=== PATIENT | female | born 1940 | race Caucasian/White ===

== ENCOUNTER 2019-04-02 11:44 | Outpatient (CLI) | payer OTHER, SELFPAY ==
[2019-04-02 12:58] LABS: Basophils Absolute Auto 0.1 K/mm3 (0.0-0.1); Basophils Percent Auto 0.5 % (0.2-1.2); Eosinophils Absolute Auto 0.2 K/mm3 (0-0.3); Eosinophils Percent Auto 1.7 % (0-4.4); Hematocrit 43.9 % (37.0-47.0); Hemoglobin 13.7 g/dL (12.0-15.0); Immature Granulocyte Absolute 0.14 K/mm3 (0.00-0.031); Immature Granulocyte Percent A 1.4 % (0-0.5); Lymphocytes Absolute Auto 2.67 K/mm3 (0.9-3.2); Mean Corpuscular HGB Conc 31.2 g/dl (32-36); Mean Corpuscular Hemoglobin 28.4 pg (26-34); Mean Corpuscular Volume 91.1 fl (80-100); Mean Platelet Volume 10.4 fl (7.4-10.4); Monocytes Absolute Auto 0.9 K/mm3 (0.1-0.6); Monocytes Percent Auto 8.9 % (2.6-8.5); Neutrophils Absolute Auto 6.3 K/mm3 (1.3-6.7); Neutrophils Percent Auto 61.5 % (45.5-73.1); Platelet Count Result 256 k/mm3 (150-375); Red Blood Count 4.82 M/mm3 (4.2-5.4); Red Cell Distribution Width 15.5 % (11.5-14.5); White Blood Count 10.3 K/mm3 (4.5-10.0)
[2019-04-02 13:07] LABS: Urine Cotinine NEGATIVE
[2019-04-02 13:09] LABS: Albumin Level 4.4 g/dL (3.5-5.1); Estimated Glomerular Filt Rate > 60; Glucose 86 mg/dL (65-105)
[2019-04-02 13:13] LABS: Hemoglobin A1C 6.9 % (<5.7)
== END 2019-04-02 11:45 | disposition home or self-care (01) ==
PROVIDERS: PCP Family Medicine; Visit Provider Orthopaedic Surgery
DX: Z01.818 Encounter for other preprocedural examination (principal); M17.12 Unilateral primary osteoarthritis, left knee
CPT/HCPCS: 36415; 80307; 82040; 82565; 82947; 83036; 85025

== ENCOUNTER 2019-04-18 15:08 | Observation (INO) | payer OTHER, SELFPAY ==
[2019-04-02 12:47] VITALS: BP 156/72; PULSE 63; RESP 18; TEMP 36.8; O2SAT 95; BMI 35.1
--- NOTE | 2019-04-15 11:25 | PM.IMHP ---
H&P: HPI History of Present Illness Chief complaint: Osteoarthritis Left Knee Narrative: Kristine Patricia is a 79 year old female Who presents with left knee pain due to primary osteoarthritis. Patient is a chronic ongoing history of pain localized left knee, the patient has limited her daily activities cannot stand or walk for long periods has trouble with squatting kneeling going up and down stairs. She has mechanical symptoms aching and pain that prevent her from standing or walking for long periods. She describes the pain as sharp intermittent pains despite cortisone therapy and anti-inflammatories she continues to have moderate to severe pain. X-rays show advanced primary osteoarthritis in the left knee joint. At this point the patient's discuss further treatment options in detail with Dr. Davenport she would not to proceed with left total knee arthroplasty. past surgical history includes a heart ablation otherwise unremarkable. Drug allergies patient reports an allergy to penicillin which cause hives, she had a skin reaction and niacin statins cause body aches, and she has a sensitivity to hydrocodone which cause nausea and vomiting. Review of Systems Review of Systems: Narrative: Ten point review of systems otherwise unremarkable All systems reviewed & are unremarkable except as noted in HPI and below PMFSH Social History Social History Gender identity (if verbalized by the patient): Female Meds Home Medications and Allergies Home Medications Medication Instructions Recorded Confirmed Type aspirin 81 mg PO DAILY 04/02/19 04/02/19 History ezetimibe 10 mg PO DAILY 04/02/19 04/02/19 History loratadine 10 mg PO DAILY 04/02/19 04/02/19 History metoprolol succinate 25 mg PO DAILY 04/02/19 04/02/19 History montelukast 10 mg PO QPM 04/02/19 04/02/19 History fnvqxsbo-cedm-[place]-calcium-mins 1 tablet PO DAILY 04/02/19 04/02/19 History [Daily Multiple For Women] omega 0-ycc-oii-fish oil [Fish Oil] 1 cap PO DAILY 04/02/19 04/02/19 History omeprazole 20 mg PO DAILY 04/02/19 04/02/19 History vit C,J-Gs-gkuqm-lutein-zeaxan 1 tablet PO DAILY 04/02/19 04/02/19 History [PreserVision AREDS-2] Allergies Allergy/AdvReac Type Severity Reaction Status Date / Time Penicillins Allergy Severe hives Verified 04/02/19 12:42 niacin Allergy Intermediate scalp get Verified 04/02/19 12:42 scaly Gohkqun-Bed-Njs Reductase Allergy Intermediate body aches Verified 04/02/19 12:42 Inhibitor hydrocodone AdvReac Severe N/V Verified 04/02/19 12:42 Exam Narrative: Exam Narrative: Patient has noted be well-developed well-nourished female in no acute distress. She is alert and oriented x3. HEENT exam within normal limits heart regular rate rhythm. Lungs clear auscultation. Abdomen benign. The patient is noted be 5' 7 220 lb. Extremities showed the patient's hips move well negative Stinchfield negative THOMAS. Patient's left knee shows pain with manipulation range of motion she has subpatellar crepitation and tenderness on the joint lines with pain with extremes of motion. She has a mild effusion swelling. Strength is 5 5. Knee joint is otherwise stable. X-rays show advanced primary osteoarthritis left knee joint. Patient walks with an antalgic gait because of the left knee pain. Skin is intact without rashes or lesions. Central nervous system exam within normal limits. Assessment and Plan Additional Plan By history exam the patient has advanced primary osteoarthritis left knee joint. The patient has discussed risks benefits limitations and alternatives to surgery in great detail with Dr. Davenport she is now ready to proceed with a left total knee arthroplasty. The patient is scheduled to undergo surgery 04/17/2019 at [facility] with Dr. Davenport, the patient voiced understanding agrees above plan.
[2019-04-17] VITALS (16 sets, daily range): BP systolic 99–180; BP diastolic 56–86; PULSE 66–95; RESP 9–20; TEMP 36.1–36.7; O2SAT 94–100
--- NOTE | 2019-04-17 07:02 | WPDHPUPDATE1 ---
History and Physical Update Update Date/Time: 04/17/19 07:02 History and Physical has been reviewed, including an updated exam of the patient. There are NO changes in the patient's condition. Risks, benefits, and alternatives have been discussed and questions answered. Patient agrees to proceed with procedure.
--- NOTE | 2019-04-17 08:25 | WPDANESEPPF ---
Anes - Initial Pre Proc Eval Procedure: Operation Date: 04/17/19 10:00 Proposed Procedures p Left Total Knee Arthroplasty - Efrain Davenport MD Date/Time: 04/17/19 08:25 Surgeon: Efrain Davenport MD Pre Op Diagnosis: Osteoarthritis Left Knee Patient Data Age: 79 Gender: F Height: 1.7 m Weight: 100.2 kg Last Vital Signs Temp 36.8 C 04/02/19 12:47 Pulse 63 04/02/19 12:47 Resp 18 04/02/19 12:47 BP 156/72 H 04/02/19 12:47 Pulse Ox 95 04/02/19 12:47 Allergies Allergy/AdvReac Type Severity Reaction Status Date / Time Penicillins Allergy Severe hives Verified 04/17/19 08:24 hydrocodone AdvReac Severe N/V Verified 04/17/19 08:24 niacin AdvReac Intermediate scalp get Verified 04/17/19 08:24 scaly Zojpmwz-Oxv-Urc Reductase AdvReac Intermediate body aches Verified 04/17/19 08:24 Inhibitor Home Medications Medication Instructions Recorded Confirmed Type aspirin 81 mg PO DAILY 04/02/19 04/17/19 History ezetimibe 10 mg PO DAILY 04/02/19 04/17/19 History loratadine 10 mg PO DAILY 04/02/19 04/17/19 History metoprolol succinate 25 mg PO DAILY 04/02/19 04/17/19 History montelukast 10 mg PO QPM 04/02/19 04/17/19 History ftltkcab-dpek-ZU-calcium-mins 1 tablet PO DAILY 04/02/19 04/17/19 History [Daily Multiple For Women] omega 6-ioe-pzq-fish oil [Fish Oil] 1 cap PO DAILY 04/02/19 04/17/19 History omeprazole 20 mg PO DAILY 04/02/19 04/17/19 History vit C,M-Pk-vdiya-lutein-zeaxan 1 tablet PO DAILY 04/02/19 04/17/19 History [PreserVision AREDS-2] Patient hx anesthesia problems: none Family hx anesthesia problems: none PMFSH Past Medical History Medical History (Updated 04/17/19 @ 08:27 by Usama Lindsey MD) Arthritis Gastroesophageal reflux disease HTN (hypertension) Hypercholesterolemia Obesity SIDDHARTH (obstructive sleep apnea) Social History Social History Gender identity (if verbalized by the patient): Female Anes - Eval Final PreProcedure Day of Procedure 04/17/19 08:25 Patient weight: obese Heart: regular rate and rhythm Lungs: clear to auscultation and normal air movement Airway: Mallampati scale class II Neurological: alert and oriented Last oral intake: >/= 8 hours ASA classification: III Emergent: no Anesthetic plan: proceed Anesthesia type and monitoring: general LMA Informed Consent: The patient's anesthetic plan and its attendant risks and benefits were discussed with the patient/family/POA. Questions were solicited and answers provided to the satisfaction of the patient/family/POA.
[2019-04-17] MEDS: LACTATED RINGERS 1,000 ML 30 ML IV CONT ×2 (08:35→11:21)
--- NOTE | 2019-04-17 09:13 | WPDANESPNB ---
Anes - Peripheral Nerve Block Date/Time: 04/17/19 09:13 I have discussed with the patient/family/POA the placement of a peripheral nerve block for post-operative pain management, including associated risks, benefits, complications, and side effects. Alternative methods of post-operative analgesia were detailed. Questions were solicited and answers provided to the satisfaction of the patient/family/POA. Time-Out: A pre-procedural Time-Out was completed immediately before starting the procedure and confirmed: Patient Identification, Site, Procedure, Patient Position and the Availability of Requisite Equipment. Clinical Indications: Acute post-operative pain management requested by the operative surgeon. Nerve Block Insertion Note Anes-nerve block: adductor canal left Patient position: supine Skin prep: chlorhexidine Needle: 22 gauge, stimulating, insulated echogenic needle. Needle length: 80 mm Technique: ultrasound Technique comment: in plane Injectate: bupivacaine 0.5% with epi 5 mcg/ml (30cc) Observations: tolerated well Complications: none Procedure start time:: 905 Procedure end time:: 910
[2019-04-17] MEDS: CLINDAMYCIN 900 MG/NS 50 ML 900 MG/50 ML PIGGYBACK 50 MG IVPB (09:45)
[2019-04-17] MEDS: GENTAMICIN BONE CEMENT REFOBACIN 1 EACH TOPICAL (10:22)
[2019-04-17] MEDS: ceFAZolin SODIUM 1 GM VIAL IV PUSH (10:38)
--- NOTE | 2019-04-17 10:54 | PM.PROC ---
Procedure Note - Detailed Date of procedure: 04/17/19 Pre-op diagnosis: Osteoarthritis Left Knee Post-op diagnosis: same Procedure performed: [Left] total knee arthroplasty Description of procedure: The patient was brought to the operating room. General anesthetic was administered. Placed on the operating table and sterilely prepped and draped in usual manner. A longitudinal incision was made. Tourniquet inflated to 300 mmHg for a total of [time] minutes. Dissection carried down to the fascia. Medial parapatellar incision was made and the patella subluxated laterally. Patella cut from [24] to [15] mm and sized for a [34] mm button. The tibia cut perpendicular to the long axis and femur cut in 5 degrees of valgus, a [65] femur trialed. [71] tibia was felt to fit the best. The soft tissue balanced, hemostasis obtained. All [address], [71] tibia, [65] femur, [34] mm patella, and [13] mm poly. Motion was 0-125 degrees with good stablility and flexion and extension. The wound was closed with #2 vicryl, 2-0 Vicryl and torsten. Anesthesia: GETA Surgeon: Efrain Davenport MD Telephone Information Clerk: Darin Marte Estimated blood loss (mL): 200 Drains: No Packing: No Pathology: none sent Complications: No immediate complications Condition: stable Disposition: PACU Findings: arthritis
[2019-04-17] MEDS: ONDANSETRON INJ 4 MG/2 ML VIAL IV PUSH (12:21)
[2019-04-17] MEDS: SODIUM CHLORIDE 0.9% IV 1,000 ML 125 ML IV CONT (14:09)
[2019-04-17] MEDS: ONDANSETRON INJ 4 MG/2 ML VIAL (14:10)
[2019-04-17 15:05] LABS: Estimated CRCL calculation 59 ml/min; Estimated Glomerular Filt Rate > 60
[2019-04-17] MEDS: CELECOXIB 200 MG CAPSULE PO (18:57)
[2019-04-17] MEDS: DOCUSATE SODIUM 100 MG CAPSULE PO (19:00)
--- NOTE | 2019-04-17 19:52 | PC.NURSE ---
Returned from OR per BED DRESSING DRY AND INTACT R 8 FAMILY AT BEDSIDE ENCOURAGED PT TO DEEP BREATHE AND COUGH, MOVES TOES SENSATION NORMAL, PT INCONT OF URINE PT REFUSES TO TAKE PAIN MEDS WANTS ONLY TYLENOL CALLED DR GARCIA FOR ORDERS PT NAUSEATED AND VOMITING STARTED NS AT 125CC/ HR . [ ]
[2019-04-17] MEDS: RIVAROXABAN 10 MG TABLET PO (20:17)
--- NOTE | 2019-04-17 20:27 | PC.NURSE ---
DOCUMENTED FOR 1300 AND THEN CHANGED PRN TO 12 HRS UNABLE TO SEE THE DOCUMETATION.
--- NOTE | 2019-04-17 22:00 | WPDCN ---
Assessment and Plan Assessment and plan (1) Osteoarthritis of left knee: Code(s): M17.12 - Unilateral primary osteoarthritis, left knee Status: Acute Assessment and Plan: Postoperative day 0, status post left total knee arthroplasty. Wound care and pain control will be deferred to Dr. Davenport. DVT prophylaxis deferred as well. Check baseline labs in a.m. (2) Hypertension: Code(s): I10 - Essential (primary) hypertension Status: Acute Assessment and Plan: Blood pressures were reviewed and they are stable. Continue metoprolol and monitor. (3) Obstructive sleep apnea on CPAP: Code(s): G47.33 - Obstructive sleep apnea (adult) (pediatric); Z99.89 - Dependence on other enabling machines and devices Status: Acute Assessment and Plan: CPAP available while sleeping. (4) Type 2 diabetes mellitus: Code(s): E11.9 - Type 2 diabetes mellitus without complications Status: Acute Assessment and Plan: Newly diagnosed with a hemoglobin A1c of 6.9% on 04/02/2019. Patient was not yet aware of these results. We discuss that even losing 10% of her weight could help. She is instructed to follow-up with her primary care provider as an outpatient. HPI Data of Consult Date/Time: 04/17/19 22:00 Requesting Physician: Efrain Davenport MD Primary Care Provider: Rachid HollandMD Consult Narrative Narrative: Kristine Patricia is an 79-year-old female whom the hospitalist service has been consulted for postoperative medical management. Her medical history is significant for osteoarthritis, hypertension, dyslipidemia, sleep apnea, and newly diagnosed type 2 diabetes mellitus with hemoglobin A1c of 6.9 % on 04/02/2019. She has had longstanding pain in her left knee, not amenable to conservative outpatient treatment, and thus she elected for replacement today. Her surgery was performed under general anesthesia with no immediate complications documented and an estimated blood loss of 200 milliliters. She had significant nausea vomiting postoperatively but is feeling much better at this time. She was able to eat some dinner postoperatively but it was not very palatable. At the time my evaluation, she is tired. She is no longer nauseated. She has minimal pain and reports perhaps 3/10 discomfort in the back of the knee. She has not had fever, chills, sweats, chest pain, or shortness of breath. She denies paresthesias, skin color, and temperature changes distal to the surgical site. Review of Systems Review of Systems: Narrative: Twelve systems were reviewed with pertinent positives negatives as per HPI. No fever, chills, or sweats. She had a cold last month but that has resolved. No exertional chest pain or shortness of breath. No history of coronary artery disease. States compliance with her CPAP at night. Hemoglobin A1c was 6.9% on 04/02/2019, indicative of type 2 diabetes mellitus. This is not been discussed with her by her primary care provider as of yet. We discussed about simply losing maybe 10% of a rate could help, and she is going to follow-up with her doctor regarding this. She denies blurry vision, polydipsia, and polyuria. No neuropathy symptoms. She has occasional constipation. no history of venous thromboembolism. Except as documented, all other systems were reviewed and are negative. [facility] Past Medical History Medical History (Updated 04/17/19 @ 22:45 by Alisa Perea PA-C) Dyslipidemia Gastroesophageal reflux disease Hypertension Macular degeneration Obesity Obstructive sleep apnea on CPAP Osteoarthritis Type 2 diabetes mellitus Hemoglobin A1c was 6.9% on 04/02/2019, diagnostic of diabetes. Patient was not yet aware of these results at this time. Surgical History Surgical History (Updated 04/17/19 @ 22:12 by Alisa Perea PA-C) History of bladder suspension procedure History of cardiac radiofrequen
[2019-04-17] MEDS: MONTELUKAST SODIUM 10 MG TABLET PO (22:29)
[2019-04-18] VITALS: RESP 13
--- NOTE | ~2019-04-18 | XR_ITS ---
EXAMINATION: XR knee LT 2V DATE: 04/17/2019 11:44 INDICATION: Total left knee arthroplasty. Postop. TECHNIQUE: 2 views of left knee were obtained. COMPARISON: None. FINDINGS: There is a total left knee arthroplasty with patellar resurfacing. Tibia demonstrate 7 degr ees posterior angulation with respect to the tibial component. There is gas in the knee joint and sof t tissues, consistent with recent surgery. There is radiopaque material in the area of the posteromed ial knee joint. Anterior skin torsten are noted. IMPRESSION: 1. New total left knee arthroplasty. Reviewed, dictated and finalized at location A. [facility]
[2019-04-18 02:00] VITALS: BP 132/61; PULSE 82; RESP 16; TEMP 36.6; O2SAT 98
[2019-04-18 06:00] VITALS: BP 130/53; PULSE 62; RESP 16; TEMP 36.4; O2SAT 95
[2019-04-18 06:25] LABS: Basophils Percent Auto 0.1 % (0.2-1.2); Eosinophils Percent Auto 0.1 % (0-4.4); Hematocrit 35.7 % (37.0-47.0); Hemoglobin 11.5 g/dL (12.0-15.0); Immature Granulocyte Absolute 0.06 K/mm3 (0.00-0.031); Immature Granulocyte Percent A 0.5 % (0-0.5); Lymphocytes Absolute Auto 1.88 K/mm3 (0.9-3.2); Lymphocytes Percent Auto 14.8 % (18.3-44.2); Mean Corpuscular HGB Conc 32.2 g/dl (32-36); Mean Corpuscular Hemoglobin 28.8 pg (26-34); Mean Corpuscular Volume 89.5 fl (80-100); Mean Platelet Volume 10.4 fl (7.4-10.4); Monocytes Absolute Auto 1.2 K/mm3 (0.1-0.6); Monocytes Percent Auto 9.4 % (2.6-8.5); Neutrophils Absolute Auto 9.5 K/mm3 (1.3-6.7); Neutrophils Percent Auto 75.1 % (45.5-73.1); Platelet Count Result 274 k/mm3 (150-375); Red Blood Count 3.99 M/mm3 (4.2-5.4); Red Cell Distribution Width 15.2 % (11.5-14.5); White Blood Count 12.7 K/mm3 (4.5-10.0)
[2019-04-18 06:42] LABS: Blood Urea Nitrogen 15 mg/dL (7-17); Calcium 8.5 mg/dL (8.4-10.2); Carbon Dioxide 24 mmol/L (22-30); Chloride 97 mmol/L (98-107); Estimated CRCL calculation 67 ml/min; Estimated Glomerular Filt Rate > 60; Glucose 126 mg/dL (65-105); Potassium 4.4 mmol/L (3.4-5.0); Sodium 135 mmol/L (137-145)
[2019-04-18] MEDS: PANTOPRAZOLE 40 MG TABLET PO (08:33)
[2019-04-18] MEDS: EZETIMIBE 10 MG TABLET PO (08:33)
[2019-04-18] MEDS: ASPIRIN 81 MG CHEWABLE TABLET PO (08:33)
[2019-04-18] MEDS: METOPROLOL SUCCINATE EXT REL 25 MG TABCR PO (08:33)
[2019-04-18] MEDS: LORATADINE 10 MG TABLET PO (08:33)
[2019-04-18] MEDS: CELECOXIB 200 MG CAPSULE PO ×2 (08:33→17:30)
--- NOTE | 2019-04-18 10:58 | PM.PNORT ---
Progress Note: A&P Additional Plan Patient is stable postop day 1 left total knee arthroplasty. Continue PT OT and current medical management and pain control measures, hopefully we will be able to discharge the patient tomorrow if stable. The patient voiced understanding agrees with above plan. Time Spent With Patient Time with patient: less than 15 minutes Subjective Subjective Date/Time Seen: 04/18/19 10:58 Patient was having some nausea and vomiting postop yesterday. Today she is feeling much better no vomiting today with only minimal nausea. She is taking p.o. well patient tolerated therapy today walked about 80 ft but was having some postoperative pain that was slowing down her progress today. Some adjustments have been made to her pain medication regimen to see if this helps calm down the pain. Otherwise she has no complaints. Exam Narrative: Exam Narrative: Vital signs stable afebrile neurovascular patient is intact, wound dressing is clean and dry, the patient is able do a straight leg raise. Calves are benign. Patient ambulated 80 ft today. Objective Data Vital Signs Vital Signs: Vital Signs - 24 hr 04/17/19 11:21 04/17/19 11:30 04/17/19 11:45 Temperature 36.1 C L Pulse Rate 73 76 77 Respiratory Rate 13 12 12 Blood Pressure 99/56 L 108/64 108/64 Pulse Oximetry 99 97 94 04/17/19 12:00 04/17/19 12:15 04/17/19 12:30 Temperature Pulse Rate 80 76 75 Respiratory Rate 12 12 12 Blood Pressure 119/66 119/69 127/74 Pulse Oximetry 94 94 100 04/17/19 12:45 04/17/19 12:58 04/17/19 13:00 Temperature Pulse Rate 73 80 88 Respiratory Rate 12 18 11 L Blood Pressure 137/74 131/74 Pulse Oximetry 99 100 99 04/17/19 13:10 04/17/19 13:30 04/17/19 14:40 Temperature 36.7 C Pulse Rate 79 81 84 Respiratory Rate 9 L 9 L 10 L Blood Pressure 116/56 L 123/70 139/86 Pulse Oximetry 99 99 98 04/17/19 18:40 04/17/19 22:00 04/18/19 00:00 Temperature 36.7 C Pulse Rate 88 95 Respiratory Rate 11 L 20 13 Blood Pressure 130/72 137/66 Pulse Oximetry 99 97 04/18/19 02:00 04/18/19 06:00 Temperature 36.6 C 36.4 C Pulse Rate 82 62 Respiratory Rate 16 16 Blood Pressure 132/61 130/53 L Pulse Oximetry 98 95 Intake/Output Intake/Output: Intake & Output 04/15/19 04/16/19 04/17/19 04/18/19 23:59 23:59 23:59 23:59 Intake Total 965 1240 Output Total 100 800 Balance 865 440 Meds/Results Medications: Active Medications Generic Name Dose Route Start Last Admin Trade Name Freq PRN Reason Stop Dose Admin Acetaminophen 650 mg 04/18/19 22:00 Tylenol Tablet PO Q4H PRN Mild Pain (1-3) Hydrocodone Bitart/Acetaminophen 1 tab 04/18/19 10:37 [place] 7.5-325 Mg PO Q4H PRN Pain Rated 7-10 Aspirin 81 mg 04/18/19 09:00 04/18/19 08:33 Aspirin Chewable PO 81 mg DAILY KARL Administration Celecoxib 200 mg 04/17/19 17:00 04/18/19 08:33 Celebrex PO 200 mg BIDWM KARL Administration Diazepam 5 mg 04/18/19 10:28 Valium Po PO Q8H PRN Anxiety Docusate Sodium 100 mg 04/17/19 17:00 04/17/19 19:01 Colace Capsule PO Not Given BID KARL Ezetimibe 10 mg 04/18/19 09:00 04/18/19 08:33 Zetia PO 10 mg DAILY KARL Administration Cefazolin Sodium 1 gm in 50 mls @ 100 mls/hr 04/17/19 19:00 04/18/19 02:53 Ancef 1 Gm/D5w 50 Ml Pm IVPB 04/18/19 11:29 Infused Q8H KARL Infusion Loratadine 10 mg 04/18/19 09:00 04/18/19 08:33 Claritin PO 10 mg DAILY KARL Administration Metoprolol Succinate 25 mg 04/18/19 09:00 04/18/19 08:33 Toprol Xl PO 25 mg DAILY KARL Administration Montelukast Sodium 10 mg 04/17/19 22:20 04/17/19 22:29 Singulair PO 10 mg QPM KARL Administration Morphine Sulfate 4 mg 04/17/19 13:00 Morphine Sulfate Inj IV PUSH Q2H PRN Breakthrough pain rated 7-10 Naloxone HCl 0.1 mg 04/17/19 13:00 Narcan IV PUSH Q2M PRN Opiate Reversal Ondansetron HCl
[2019-04-18] MEDS: DOCUSATE SODIUM 100 MG CAPSULE PO ×2 (11:01→17:30)
[2019-04-18] MEDS: MORPHINE SULFATE 4 MG/ML INJ IV PUSH ×2 (13:02→22:30)
--- NOTE | 2019-04-18 13:25 | WPDANESPN ---
Anes - Prog Note Post-Op Date/Time: 04/18/19 13:25 Cardiovascular status: normal Respiratory status: normal Airway patency: baseline Mental status: baseline Post-Op hydration status: normal Vital Signs: Last Vital Signs Temp 36.4 C 04/18/19 06:00 Pulse 62 04/18/19 06:00 Resp 16 04/18/19 06:00 BP 130/53 L 04/18/19 06:00 Pulse Ox 95 04/18/19 06:00 Pain Score (VAS): 0/10. Patient resting in bed at time of assessment. Patient complained of pain, being treated with PRN meds available to RN. Spoke with RN regarding pain and nausea, orders available PRN. I/O: Intake & Output 04/17/19 04/18/19 04/18/19 23:59 07:59 15:59 Intake Total 615 840 450 Output Total 100 800 Balance 515 40 450 Laboratory Tests 04/18/19 05:46 04/18/19 05:46 04/17/19 04/18/19 04/18/19 14:48 05:46 05:46 WBC 12.7 H RBC 3.99 L Hgb 11.5 L Hct 35.7 L MCV 89.5 MCH 28.8 MCHC 32.2 RDW 15.2 H Plt Count 274 MPV 10.4 Immature Gran % (Auto) 0.5 Neut % (Auto) 75.1 H Lymph % (Auto) 14.8 L [place] % (Auto) 9.4 H Eos % (Auto) 0.1 Baso % (Auto) 0.1 L Lymph # (Auto) 1.88 [place] # (Auto) 1.2 H Eos # (Auto) 0.0 Baso # (Auto) 0.0 Abs Immat Gran (auto) 0.06 H Absolute Neuts (auto) 9.5 H Absolute Nucleated RBC 0.0 Nucleated RBC % 0.0 Sodium 135 L Potassium 4.4 Chloride 97 L Carbon Dioxide 24 BUN 15 Creatinine 0.80 0.70 Estim Creat Clear Calc 59 67 Estimated GFR > 60 > 60 Glucose 126 H Calcium 8.5 Post-procedural complaints: none Patient Feedback: Patient satisfied with anesthetic care.
--- NOTE | 2019-04-18 13:40 | PM.IMPN ---
Progress Note: A&P Assessment and Plan (1) Osteoarthritis of left knee: Code(s): M17.12 - Unilateral primary osteoarthritis, left knee Status: Acute Assessment and Plan: Postoperative day 1, status post left total knee arthroplasty per Dr. Davenport Wound care, DVT ppx, PT/OT and pain control will be deferred to Dr. Davenport. (2) Hypertension: Code(s): I10 - Essential (primary) hypertension Status: Acute Assessment and Plan: Blood pressures were reviewed and they are stable. BP 130s today Continue metoprolol and monitor. (3) Obstructive sleep apnea on CPAP: Code(s): G47.33 - Obstructive sleep apnea (adult) (pediatric); Z99.89 - Dependence on other enabling machines and devices Status: Acute Assessment and Plan: CPAP available while sleeping, although patient deferred last night (4) Type 2 diabetes mellitus: Code(s): E11.9 - Type 2 diabetes mellitus without complications Status: Acute Assessment and Plan: Newly diagnosed with a hemoglobin A1c of 6.9% on 04/02/2019. Patient was not yet aware of these results. It was discussed that even losing 10% of her weight could help. She is instructed to follow-up with her primary care provider as an outpatient. She understands these instructions Additional Plan Thank you for allowing the Hospitalist team to care for this patient during their stay. We will continue to follow with you. Please call with any questions Subjective Date/time seen: 04/18/19 13:40 This is a Hospitalist Consult Progress Note Interval history: Patient is a 79 yo F with history of osteoarthritis, hypertension, dyslipidemia, sleep apnea, and newly diagnosed type 2 diabetes mellitus with hemoglobin A1c of 6.9 % on 04/02/2019 who is here for elective LTKA per Dr. Davenport POD1; Hospitalist service has been consulted for medical management of comorbid conditions during her stay. Patient states she is doing okay today, but was in significant pain earlier in stay. She states adjustments in her medications and an icepack to the back of the knee have helped with her pain. She states her N/V has resolved. She has not had a BM yet. She thinks she is doing well with therapy thus far. No other complaints today. Denies f/c/ns, headaches, dizziness, lightheadedness, changes in v/h, cp/palpitations, sob/cough, abd pain, dysphagia, melena, brbpr, dysuria, hematuria, cloudy urine, calf pain/swelling, s/sx of stroke Review of Systems Review of Systems: All systems reviewed & are unremarkable except as noted in HPI and below Exam Narrative: Exam Narrative: Patient lying in semi-arora's position at time of visit Const: General: cooperative, healthy appearing, comfortable, no acute distress, well developed, alert and awake Nutritional Appearance: obese Orientation/consciousness: patient oriented x3 HENMT: Head: normocephalic and atraumatic General nose exam: Normal nares present Face and sinus: face symmetric Mouth: Yes tongue normal and Yes moist mucous membranes Teeth and gingiva: fair dentition Throat: posterior oropharynx normal and uvula midline Eyes: General: appearance normal, both eyes and all related structures Sclera: sclerae normal Pupils: Equal, round and reactive pupils present EOM: EOMs intact bilaterally Neck: Neck: trachea midline and supple Resp: Effort & Inspection: normal respiratory effort Auscultation: clear to auscultation bilaterally Cardio: Rate: regular rate Rhythm: regular rhythm Heart sounds: no murmurs GI: Inspection: obesity GI Palp: No abdominal tenderness and Yes Soft to palpation Auscultation: normal bowel sounds and Hypoactive bowel sounds present Skin: General skin exam: normal color and no rashes or lesions noted Neuro: General: patient oriented x3 and moves al
[2019-04-18] MEDS: ONDANSETRON INJ 4 MG/2 ML VIAL IV PUSH ×2 (15:28→22:30)
[2019-04-18] MEDS: RIVAROXABAN 10 MG TABLET PO (17:30)
[2019-04-18] MEDS: MONTELUKAST SODIUM 10 MG TABLET PO (17:30)
[2019-04-18] MEDS: ACETAMINOPHEN 325 MG TABLET 650 MG PO ×2 (17:32→21:31)
[2019-04-18 20:00] VITALS: PULSE 77; RESP 16; O2SAT 94
[2019-04-18 22:00] VITALS: BP 129/65; PULSE 77; RESP 16; TEMP 36.4; O2SAT 94
[2019-04-19] MEDS: ONDANSETRON INJ 4 MG/2 ML VIAL IV PUSH ×2 (04:02→08:56)
[2019-04-19] MEDS: MORPHINE SULFATE 4 MG/ML INJ IV PUSH (05:42)
[2019-04-19 06:00] VITALS: BP 119/66; PULSE 78; RESP 16; TEMP 36.6; O2SAT 95
[2019-04-19 06:05] LABS: Hematocrit 34.1 % (37.0-47.0); Hemoglobin 10.7 g/dL (12.0-15.0); Mean Corpuscular HGB Conc 31.4 g/dl (32-36); Mean Corpuscular Hemoglobin 28.5 pg (26-34); Mean Corpuscular Volume 90.9 fl (80-100); Mean Platelet Volume 10.7 fl (7.4-10.4); Platelet Count Result 218 k/mm3 (150-375); Red Blood Count 3.75 M/mm3 (4.2-5.4); Red Cell Distribution Width 15.6 % (11.5-14.5); White Blood Count 6.6 K/mm3 (4.5-10.0)
[2019-04-19 11:15] VITALS: PULSE 78
[2019-04-19] MEDS: CELECOXIB 200 MG CAPSULE PO ×2 (11:15→18:28)
[2019-04-19] MEDS: ASPIRIN 81 MG CHEWABLE TABLET PO (11:15)
[2019-04-19] MEDS: EZETIMIBE 10 MG TABLET PO (11:15)
[2019-04-19] MEDS: DOCUSATE SODIUM 100 MG CAPSULE PO ×2 (11:15→18:35)
[2019-04-19] MEDS: LORATADINE 10 MG TABLET PO (11:15)
[2019-04-19] MEDS: METOPROLOL SUCCINATE EXT REL 25 MG TABCR PO (11:15)
[2019-04-19] MEDS: PANTOPRAZOLE 40 MG TABLET PO (11:16)
--- NOTE | 2019-04-19 12:22 | PM.PNORT ---
Progress Note: A&P Additional Plan Patient is now 2 days postop left total knee arthroplasty. She is finding nausea due to narcotic pain medication were trying to minimize this however she is having significant postoperative pain as well. We will add Flexeril 10 mg every 8 hours p.r.n., continue with Celebrex, ice, and will minimize narcotics for now. She is going to keep trying to work in physical therapy and continue with liquid diet advance as tolerated. We will keep her again overnight to monitor and hopefully discharge tomorrow. Patient voiced understanding agrees above plan. Time Spent With Patient Time with patient: 15 - 25 minutes Subjective Subjective Date/Time Seen: 04/19/19 12:22 Patient today is complaining of lots of nausea, having trouble participating in physical therapy due to feeling sick to her stomach a little bit coronal ?woozy . Patient has not vomited today but did yesterday, states she has lots of trouble taking narcotic pain medication postoperatively. She has tried to minimize this however the pain becomes unbearable in her left knee and has had to use morphine and [place] to try to control this. She states she otherwise feels okay without other complaints. She has not had a bowel movement since surgery 2 days ago and she was offered medication to help with this as well and would like to proceed. Exam Narrative: Exam Narrative: Vital signs stable afebrile neurovascular she is intact. Wound dressing is clean and dry. Calves are benign. She is able to do a straight leg raise without difficulty but with some pain. Abdomen is soft and nontender. Objective Data Vital Signs Vital Signs: Vital Signs - 24 hr 04/18/19 20:00 04/18/19 22:00 04/19/19 06:00 Temperature 36.4 C 36.6 C Pulse Rate 77 77 78 Respiratory Rate 16 16 16 Blood Pressure 129/65 119/66 Pulse Oximetry 94 94 95 04/19/19 11:15 Temperature Pulse Rate 78 Respiratory Rate Blood Pressure Pulse Oximetry Intake/Output Intake/Output: Intake & Output 04/16/19 04/17/19 04/18/19 04/19/19 23:59 23:59 23:59 23:59 Intake Total 965 2110 470 Output Total 100 800 750 Balance 865 1310 -280 Meds/Results Medications: Active Medications Generic Name Dose Route Start Last Admin Trade Name Freq PRN Reason Stop Dose Admin Acetaminophen 650 mg 04/18/19 22:00 04/18/19 21:31 Tylenol Tablet PO 650 mg Q4H PRN Administration Mild Pain (1-3) Hydrocodone Bitart/Acetaminophen 1 tab 04/18/19 10:37 04/19/19 08:56 [place] 7.5-325 Mg PO 1 tab Q4H PRN Administration Pain Rated 7-10 Aspirin 81 mg 04/18/19 09:00 04/19/19 11:15 Aspirin Chewable PO 81 mg DAILY KARL Administration Celecoxib 200 mg 04/17/19 17:00 04/19/19 11:15 Celebrex PO 200 mg BIDWM KARL Administration Diazepam 5 mg 04/18/19 10:28 Valium Po PO Q8H PRN Anxiety Docusate Sodium 100 mg 04/17/19 17:00 04/19/19 11:15 Colace Capsule PO 100 mg BID KARL Administration Ezetimibe 10 mg 04/18/19 09:00 04/19/19 11:15 Zetia PO 10 mg DAILY KARL Administration Loratadine 10 mg 04/18/19 09:00 04/19/19 11:15 Claritin PO 10 mg DAILY KARL Administration Metoprolol Succinate 25 mg 04/18/19 09:00 04/19/19 11:15 Toprol Xl PO 25 mg DAILY KARL Administration Montelukast Sodium 10 mg 04/17/19 22:20 04/18/19 17:30 Singulair PO 10 mg QPM KARL Administration Morphine Sulfate 4 mg 04/17/19 13:00 04/19/19 05:42 Morphine Sulfate Inj IV PUSH 4 mg Q2H PRN Administration Breakthrough pain rated 7-10 Naloxone HCl 0.1 mg 04/17/19 13:00 Narcan IV PUSH Q2M PRN Opiate Reversal Ondansetron HCl 4 mg 04/17/19 15:07 04/19/19 08:56 Zofran Inj IV PUSH 4 mg Q4H PRN Administration Nausea And Vomiting Pantoprazole Sodium 40 mg 04/18/19 09:00 04/19/19 11:16 Protonix PO 40 mg QAM KARL Administration Rivaroxaban 10 mg 04/17/19 21:00 02/2
[2019-04-19] MEDS: ONDANSETRON HCL ODT 4 MG TABLET PO (13:48)
[2019-04-19] MEDS: CYCLOBENZAPRINE HCL 10 MG TABLET PO (13:48)
[2019-04-19] MEDS: BISACODYL 5 MG TABLET EC 10 MG PO (13:49)
[2019-04-19 14:00] VITALS: BP 136/72; PULSE 85; RESP 16; TEMP 36.7; O2SAT 97
--- NOTE | 2019-04-19 15:20 | PM.IMPN ---
Progress Note: A&P Assessment and Plan (1) Osteoarthritis of left knee: Code(s): M17.12 - Unilateral primary osteoarthritis, left knee Status: Acute Assessment and Plan: Postoperative day 2, status post left total knee arthroplasty per Dr. Davenport Wound care, DVT ppx, PT/OT and pain control will be deferred to Dr. Davenport. (2) Hypertension: Code(s): I10 - Essential (primary) hypertension Status: Acute Assessment and Plan: Blood pressures were reviewed and they are stable. BP 130s today Continue metoprolol and monitor. (3) Obstructive sleep apnea on CPAP: Code(s): G47.33 - Obstructive sleep apnea (adult) (pediatric); Z99.89 - Dependence on other enabling machines and devices Status: Acute Assessment and Plan: CPAP available while sleeping, although patient has deferred due to machine (4) Type 2 diabetes mellitus: Code(s): E11.9 - Type 2 diabetes mellitus without complications Status: Acute Assessment and Plan: Newly diagnosed with a hemoglobin A1c of 6.9% on 04/02/2019. Patient was not yet aware of these results. It was discussed that even losing 10% of her weight could help. She is instructed to follow-up with her primary care provider as an outpatient. She understands these instructions (5) Constipation: Code(s): K59.00 - Constipation, unspecified Status: Acute Assessment and Plan: Likely due to decreased mobility/opioid use Agree with bisacodyl in addition to her already scheduled docusate BID Consider Senna PO or suppository/enema for lower GI tract stimulation, as well, for possible added benefit Encouraged patient to be up out of bed as much as possible Monitor Additional Plan Thank you for allowing the Hospitalist team to care for this patient during their stay. We will continue to follow with you. Please call with any questions Subjective Date/time seen: 04/19/19 15:20 Interval history: Patient is a 79 yo F with history of osteoarthritis, hypertension, dyslipidemia, sleep apnea, and newly diagnosed type 2 diabetes mellitus with hemoglobin A1c of 6.9 % on 04/02/2019 who is here for elective LTKA per Dr. Davenport POD2; Hospitalist service has been consulted for medical management of comorbid conditions during her stay. Patient states she is still in pain today. She had N/V yesterday afternoon, but this has resolved; she thinks her pain medication exacerbates this. She is still constipated. She is not passing gas. No other complaints today. Denies f/c/ns, headaches, dizziness, lightheadedness, changes in v/h, cp/palpitations, sob/cough, abd pain, dysphagia, dysuria, hematuria, cloudy urine, calf pain/swelling, s/sx of stroke Review of Systems Review of Systems: All systems reviewed & are unremarkable except as noted in HPI and below Exam Narrative: Exam Narrative: Patient lying in semi-arora's position at time of visit. is in room visiting Const: General: cooperative, healthy appearing, comfortable, no acute distress, well developed, alert and awake Nutritional Appearance: obese Orientation/consciousness: patient oriented x3 HENMT: Head: normocephalic and atraumatic General nose exam: Normal nares present Face and sinus: face symmetric Mouth: Yes tongue normal and Yes moist mucous membranes Teeth and gingiva: fair dentition Throat: posterior oropharynx normal and uvula midline Eyes: General: appearance normal, both eyes and all related structures Sclera: sclerae normal Pupils: Equal, round and reactive pupils present EOM: EOMs intact bilaterally Neck: Neck: trachea midline and supple Resp: Effort & Inspection: normal respiratory effort Auscultation: clear to auscultation bilaterally Cardio: Rate: regular rate
[2019-04-19] MEDS: MONTELUKAST SODIUM 10 MG TABLET PO (18:29)
[2019-04-19] MEDS: RIVAROXABAN 10 MG TABLET PO (18:29)
[2019-04-19 19:58] VITALS: PULSE 85; RESP 16; O2SAT 97
[2019-04-19 20:10] VITALS: PULSE 85; RESP 16; O2SAT 97
[2019-04-19 22:11] VITALS: BP 155/74; PULSE 88; RESP 16; TEMP 36.8; O2SAT 98
[2019-04-20 03:12] VITALS: PULSE 76; RESP 18; O2SAT 96
[2019-04-20 06:00] VITALS: BP 150/66; PULSE 87; RESP 16; TEMP 37; O2SAT 96
[2019-04-20 06:27] LABS: Hematocrit 32.1 % (37.0-47.0); Hemoglobin 10.2 g/dL (12.0-15.0); Mean Corpuscular HGB Conc 31.8 g/dl (32-36); Mean Corpuscular Hemoglobin 28.5 pg (26-34); Mean Corpuscular Volume 89.7 fl (80-100); Mean Platelet Volume 10.7 fl (7.4-10.4); Platelet Count Result 229 k/mm3 (150-375); Red Blood Count 3.58 M/mm3 (4.2-5.4); Red Cell Distribution Width 15.5 % (11.5-14.5); White Blood Count 6.5 K/mm3 (4.5-10.0)
[2019-04-20 08:14] VITALS: PULSE 87
[2019-04-20] MEDS: EZETIMIBE 10 MG TABLET PO (08:14)
[2019-04-20] MEDS: LORATADINE 10 MG TABLET PO (08:14)
[2019-04-20] MEDS: CELECOXIB 200 MG CAPSULE PO (08:14)
[2019-04-20] MEDS: METOPROLOL SUCCINATE EXT REL 25 MG TABCR PO (08:14)
[2019-04-20] MEDS: ASPIRIN 81 MG CHEWABLE TABLET PO (08:14)
[2019-04-20] MEDS: PANTOPRAZOLE 40 MG TABLET PO (08:14)
[2019-04-20] MEDS: DOCUSATE SODIUM 100 MG CAPSULE PO (08:19)
--- NOTE | 2019-04-20 10:49 | PM.IMPN ---
Progress Note: A&P Assessment and Plan (1) Osteoarthritis of left knee: Code(s): M17.12 - Unilateral primary osteoarthritis, left knee Status: Acute Assessment and Plan: Postoperative day 3, status post left total knee arthroplasty per Dr. Davenport. Doing well today Wound care, DVT ppx, PT/OT and pain control will be deferred to Dr. Davenport. (2) Hypertension: Code(s): I10 - Essential (primary) hypertension Status: Acute Assessment and Plan: Blood pressures were reviewed and they are stable. BP 150s sys today, but patient states she was having blood drawn at the time Continue metoprolol Follow up with Cardiology per their recommendations Rec measuring BP at home over the next couple of days to ensure BP is controlled (3) Obstructive sleep apnea on CPAP: Code(s): G47.33 - Obstructive sleep apnea (adult) (pediatric); Z99.89 - Dependence on other enabling machines and devices Status: Acute Assessment and Plan: CPAP at home (4) Type 2 diabetes mellitus: Code(s): E11.9 - Type 2 diabetes mellitus without complications Status: Acute Assessment and Plan: Newly diagnosed with a hemoglobin A1c of 6.9% on 04/02/2019. Patient was not yet aware of these results. It was discussed that even losing 10% of her weight could help. She is instructed to follow-up with her primary care provider as an outpatient. She understands these instructions (5) Constipation: Code(s): K59.00 - Constipation, unspecified Status: Acute Assessment and Plan: Likely due to decreased mobility/opioid use. Passing gas today, but no BM as of yet Recommended OTC bisacodyl, Sennokot, or Miralax at discharge Additional Plan Thank you for allowing the Hospitalist team to care for this patient during their stay. Please call with any questions Subjective Date/time seen: 04/20/19 10:49 This is a Hospitalist Consult Progress Note Interval history: Patient is a 79 yo F with history of osteoarthritis, hypertension, dyslipidemia, sleep apnea, and newly diagnosed type 2 diabetes mellitus with hemoglobin A1c of 6.9 % on 04/02/2019 who is here for elective LTKA per Dr. Davenport POD3; Hospitalist service has been consulted for medical management of comorbid conditions during her stay. Patient states she is doing better today; pain is reasonable today. She is passing gas today. No N/V since 2 days ago. No other complaints today. Denies f/c/ns, headaches, dizziness, lightheadedness, changes in v/h, cp/palpitations, sob/cough, n/v, abd pain, dysphagia, dysuria, hematuria, cloudy urine, calf pain/swelling, s/sx of stroke Review of Systems Review of Systems: All systems reviewed & are unremarkable except as noted in HPI and below Exam Narrative: Exam Narrative: Patient sitting upright in chair at time of visit. is in room visiting Const: General: cooperative, healthy appearing, comfortable, no acute distress, well developed, alert and awake Nutritional Appearance: obese Orientation/consciousness: patient oriented x3 HENMT: Head: normocephalic and atraumatic General nose exam: Normal nares present Face and sinus: face symmetric Mouth: Yes tongue normal and Yes moist mucous membranes Teeth and gingiva: fair dentition Throat: posterior oropharynx normal and uvula midline Eyes: General: appearance normal, both eyes and all related structures Sclera: sclerae normal Pupils: Equal, round and reactive pupils present EOM: EOMs intact bilaterally Neck: Neck: trachea midline and supple Resp: Effort & Inspection: normal respiratory effort Auscultation: clear to auscultation bilaterally Cardio: Rate: regular rate Rhythm: regular rhythm Heart sounds: no murmurs GI: Inspection: obesity GI Palp:
--- NOTE | 2019-06-19 11:46 | PM.DS ---
DS: Diagnosis Admitting Diagnosis Admitting Diagnosis: Unilateral primary osteoarthritis, left knee Patient is an 79-year-old female who underwent a left total knee arthroplasty performed by Dr. Davenport April 17, 2019 a diagnosis of advanced primary osteoarthritis left knee joint. Postoperatively patient did well she was having some pain control issues and also was having significant nausea due to narcotic pain medication. Other than that she was doing well on medications were adjusted and the nausea subsided. Celebrex was added along with ice and minimization of narcotic pain medication. Patient's vital signs are stable she is afebrile and neurovascularly she was intact wound was clean and dry calves are benign. The patient has some constipation was offered medication to treat this which gave her good results. Patient was tolerating physical therapy well by the 3rd day 1st couple of days when slow because of the pain control issues and problems with nausea. By the 3rd day she was deemed stable for discharge to home. DS: Summary Time Spent with Patient Time attestation: Total time spent providing and/or coordinating discharge services: Exam Narrative: Exam Narrative: Vital signs stable afebrile and neurovascularly she is intact wound was clean and dry calves were benign, patient had good range of motion status post left total knee arthroplasty tolerating physical therapy well. Discharge Plan Discharge Attending physician on discharge: Efrain Davenport Consulting providers: Joshua Ortiz ; Margoth Pena ; Alisa Perea ; Darin Marte ; Mau Jenkins V. Discharging Clinician: Darin Marte Anticipated Discharge Date/Time: 04/20/19 13:29 Patient Disposition: Home, Self-Care Activity: no shower and as tolerated Diet: as tolerated Wound Care Instructions: keep dressing dry and change dressing daily Discharge Instructions: Discharged home activity as tolerated weight-bearing as tolerated left lower extremity with a walker. Patient is to start outpatient physical therapy for total knee protocol beginning early next week as instructed to do her exercises daily on her own at home as well. She will be discharged with Celebrex Flexeril [place] and Xarelto. Xarelto will be for DVT prophylaxis for 2 weeks postop when the course is complete the patient will go to aspirin 325 mg b.i.d. x6 weeks. Patient will change dressing daily washer evidence of drainage or infection call for any problems difficulties or questions. Patient will follow up at 2 weeks postop for staple removal and wound recheck. Patient is on a general diet as tolerated. Patient will call the office at [phone] for any problems difficulties or questions. Discharge instructions per Hospitalist Joshua Ortiz PA-C: Follow up with Orthopedic surgery per their instructions Follow up with your PCP about your elevated A1c, as this was suggestive you may have Diabetes. They will likely need to reassess this and potentially start medications. You may use OTC laxatives for constipation; Examples include bisacodyl (oral or suppository), Sennokot, or Miralax. Should you have further issues, contact Orthopedic Surgery Recommend measuring blood pressure daily for the next day or so. If consistently elevated, contact your [facility] for further management/instructions Resume your home BP medication as prescribed All other medications per Orthopedic Surgery For worrisome symptoms such as severe chest pain/palpitations, severe shortness of breath, please safely proceed to the ER for further evaluation. For lesser questions/concerns, please contact your primary or respective specialist for further instructions. Patient Instructions: Pain Management in Older Adults (DC), Knee Replacement (DC) Stand Alone Forms: General Discharge Information Follow-up/Referrals: Efrain Davenport MD [Physician] - (Follow-up 2 weeks postop
== END 2019-04-20 12:30 | disposition home or self-care (01) ==
LOC: ANHSURGERY 07-22 12:00
PROVIDERS: Physician Assistant; Admitting Provider Orthopaedic Surgery; PCP Family Medicine; Visit Provider Orthopaedic Surgery
PROC: (CPT 27447; principal; 2019-04-17 10:00)
DX: M17.12 Unilateral primary osteoarthritis, left knee (principal); G89.18 Other acute postprocedural pain; I10 Essential (primary) hypertension; E11.9 Type 2 diabetes mellitus without complications; R11.0 Nausea; K59.00 Constipation, unspecified; E78.5 Hyperlipidemia, unspecified; K21.9 Gastro-esophageal reflux disease without esophagitis; G47.33 Obstructive sleep apnea (adult) (pediatric); E66.9 Obesity, unspecified; Z79.82 Long term (current) use of aspirin; Z79.899 Other long term (current) drug therapy; Z99.89 Dependence on other enabling machines and devices
CPT/HCPCS: 27447; 64447; 36415; 73560; 80048; 82565; 85025; 85027; 86850; 86900; 86901; 97110; 97116; 97161; 97165; 97530; 97535; A9270; C1713; C1776; G0378; J0131; J0171; J0690; J1885; J2250; J2270; J2405; J2795; J3010; J3370; J7030; J7120